=== PATIENT | female | born 2005 | race African-American/Black ===

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

== ENCOUNTER 2023-02-20 14:37 | Emergency (ER) | payer MEDICAID ==
[~2023-02-20] VITALS: Ht 162.6 cm; Wt 61.5 kg
[2023-02-20 15:48] VITALS: BP 114/70
[2023-02-20] MEDS ORDERED: cefTRIAXone SOD 1,000 MG VL IM ONE (16:15)
[2023-02-20] MEDS ORDERED: IBUPROFEN 600 MG TAB PO ONE (16:15)
[2023-02-20] MEDS ORDERED: AZIT250T8 PO (16:32)
[2023-02-20] MEDS ORDERED: IBUP600T27 PO (16:32)
== END 2023-02-20 16:39 | disposition home or self-care (01) ==
LOC: ER 14:37
DX: J03.90 Acute tonsillitis, unspecified (principal); Z79.1 Long term (current) use of non-steroidal anti-inflammatories (NSAID); Z79.2 Long term (current) use of antibiotics
CPT/HCPCS: 96372; 99283; J0696